=== PATIENT | female | born 1995 | race Caucasian/White ===

== ENCOUNTER 2017-01-25 01:01 | Emergency (ER) | payer BC ==
[~2017-01-25] VITALS: Ht 170.2 cm; Wt 64.0 kg
[~2017-01-25 01:01] MED LIST: ATARAX,VISTARIL25 MG PO; AUGMENTIN875 MG PO; MOTRIN600 MG PO
[2017-01-25 01:26] LABS: EOSINOPHIL (%) 3.5 % (0-5); EOSINOPHIL COUNT 0.4 K/uL (0-0.3); HEMATOCRIT 39.4 % (36.0-46.0); IMMATURE GRANULOCYTE (%) 0.3 % (0.0-0.7); INSTRUMENT ABS NEUTROPHIL CT 4.8 K/uL; LYMPHOCYTE COUNT 4.4 K/uL (1.0-2.8); MCH 30.6 PG (29.0-34.0); MCHC 33.5 G/DL (30.0-36.0); MCV 91.2 FL (83-99); MONOCYTE (%) 4.8 % (3-12); MONOCYTE COUNT 0.5 K/uL (0-0.8); NEUTROPHIL (%) 47.1 % (45-76); NEUTROPHIL COUNT 4.8 K/uL (1.8-6.4); PLATELET COUNT 278 K/uL (156-360); RBC DIS.WIDTH-CV 12.6 % (11.8-14.6); RED BLOOD COUNT 4.32 M/uL (3.80-5.20); WHITE BLOOD COUNT 10.1 K/uL (4.1-10.2)
[2017-01-25 01:37] LABS: CHLORIDE 109 mEq/L (99-109); POTASSIUM 3.8 mEq/L (3.7-5.4); SODIUM 144 mEq/L (136-147)
[2017-01-25 01:39] LABS: GLUCOSE 104 mg/dL (70-99)
[2017-01-25 01:40] LABS: ANION GAP 8 MEQ/L (2-14)
[2017-01-25 01:41] LABS: TOTAL BILIRUBIN 0.1 mg/dL (0.0-1.0)
[2017-01-25 01:42] LABS: SERUM ETHYL ALCOHOL 223 mg/dL
[2017-01-25 01:43] LABS: ALKALINE PHOSPHATASE 65 IU/L (3-129); GFR ESTIMATE (CALCULATED) > 59 mL/min/
[2017-01-25 01:45] LABS: UREA NITROGEN (BUN) 9 mg/dL (9-23)
[2017-01-25 01:46] LABS: SALICYLATE < 5.0 MG/DL (15-30)
[2017-01-25 01:53] LABS: QUANTITATIVE HCG < 4.0 MIU/ML
[2017-01-25 02:03] LABS: ADD MIUA? NO; BILIRUBIN NEGATIVE; BLOOD NEGATIVE; COLOR COLORLESS ((YELLOW)); GLUCOSE (STRIP) NEGATIVE; KETONES NEGATIVE; LEUKOCYTES NEGATIVE; NITRITE NEGATIVE; PROTEIN (STRIP) NEGATIVE; SPECIFIC GRAVITY 1.004 (1.000-1.030); UCUL ADDED? NO; UROBILINOGEN 0.2 MG/DL (0.2-1.0)
[2017-01-25 02:12] LABS: ADD MEDTOX COMMENT Y; AMPHETAMINE NEGATIVE (500 ng/mL); BARBITURATES NEGATIVE (200 ng/mL); BENZODIAZEPINES NEGATIVE (150 ng/mL); COCAINE NEGATIVE (150 ng/mL); INTERNAL CONTROLS VALID? YES; METHADONE NEGATIVE (200 ng/mL); METHAMPHETAMINE NEGATIVE (500 ng/mL); OPIATES (MORPHINE) NEGATIVE (100 ng/mL); OXYCODONE NEGATIVE (100 ng/mL); PHENCYCLIDINE NEGATIVE (25 ng/mL); PROPOXYPHENE NEGATIVE (300 ng/mL); THC CANNABINOIDS PRESUMPTIVE POSITIVE (50 ng/mL); TRICYCLIC ANTIDEPRESSANTS NEGATIVE (300 ng/mL)
[2017-01-25 08:04] VITALS: BP 132/80
== END 2017-01-25 08:15 | disposition home or self-care (01) ==
LOC: EME 01:01
PROVIDERS: Emergency Medicine
DX: F10.129 Alcohol abuse with intoxication, unspecified (principal); Y90.7 Blood alcohol level of 200-239 mg/100 ml; F32.9 Major depressive disorder, single episode, unspecified; F17.200 Nicotine dependence, unspecified, uncomplicated; Z91.5 Personal history of self-harm
CPT/HCPCS: 80053; 81003; 84702; 84999; 85025; 90837; 99281; 99285; G0480; J1630; J2060

== ENCOUNTER 2017-02-25 10:18 | Emergency (ER) | payer BC ==
[~2017-02-25] VITALS: Ht 170.2 cm; Wt 66.0 kg
[2017-02-25] MEDS ORDERED: ATARAX,VISTARIL50 MG PO (12:10)
[2017-02-25] MEDS ORDERED: AMOXICILLIN500 M1 PO (12:10)
[2017-02-25 12:37] VITALS: BP 135/72
== END 2017-02-25 12:38 | disposition home or self-care (01) ==
LOC: EME 10:18
DX: J02.0 Streptococcal pharyngitis (principal)
CPT/HCPCS: 87651 90; 99281; 99283; Q0177

== ENCOUNTER 2017-03-07 20:39 | Emergency (ER) | payer BC ==
[~2017-03-07] VITALS: Ht 170.2 cm; Wt 65.8 kg
[~2017-03-07 20:39] MED LIST changes: +AMOXICILLIN500 M1 PO; +ATARAX,VISTARIL50 MG PO
[2017-03-07] MEDS ORDERED: VALTREX1000 MG PO (23:06)
[2017-03-07] MEDS ORDERED: PERCOCET 7.51 TABLET PO (23:06)
[2017-03-07] MEDS ORDERED: INDOCIN50 MG PO (23:06)
[2017-03-07] MEDS ORDERED: LIDOCAINE20 MG/1 M5 MM (23:08)
[2017-03-07 23:44] VITALS: BP 147/95
== END 2017-03-07 23:48 | disposition home or self-care (01) ==
LOC: EME 20:39
DX: A60.00 Herpesviral infection of urogenital system, unspecified (principal); F17.200 Nicotine dependence, unspecified, uncomplicated
CPT/HCPCS: 99281; 99284; J1885

== ENCOUNTER 2017-04-04 00:01 | Emergency (ER) | payer BC ==
[~2017-04-04] VITALS: Ht 170.2 cm; Wt 62.6 kg
[~2017-04-04 00:01] MED LIST changes: +INDOCIN50 MG PO; +LIDOCAINE20 MG/1 M5 MM; +PERCOCET 7.51 TABLET PO; +VALTREX1000 MG PO
[2017-04-04 01:55] LABS: MCH 30.6 PG (29.0-34.0); MCHC 33.5 G/DL (30.0-36.0); MCV 91.3 FL (83-99); MEAN PLAT.VOLUME 9.9 uM^3 (9.5-12.4); PLATELET COUNT 244 K/uL (156-360); RBC DIS.WIDTH-CV 13.5 % (11.8-14.6); RBC DIS.WIDTH-SD 45.6 % (39-53); RED BLOOD COUNT 4.38 M/uL (3.80-5.20); WHITE BLOOD COUNT 9.2 K/uL (4.1-10.2)
[2017-04-04 02:13] LABS: CHLORIDE 106 mEq/L (99-109); POTASSIUM 3.9 mEq/L (3.7-5.4); SODIUM 144 mEq/L (136-147)
[2017-04-04 02:14] LABS: GLUCOSE 100 mg/dL (70-99)
[2017-04-04 02:16] LABS: ANION GAP 13 MEQ/L (2-14)
[2017-04-04 02:17] LABS: QUANTITATIVE HCG < 4.0 MIU/ML
[2017-04-04 02:18] LABS: GFR ESTIMATE (CALCULATED) > 59 mL/min/; SERUM ETHYL ALCOHOL 163 mg/dL
[2017-04-04 02:19] LABS: UREA NITROGEN (BUN) 5 mg/dL (9-23)
[2017-04-04 02:50] LABS: AMPHETAMINE NEGATIVE (500 ng/mL); BARBITURATES NEGATIVE (200 ng/mL); BENZODIAZEPINES NEGATIVE (150 ng/mL); COCAINE NEGATIVE (150 ng/mL); INTERNAL CONTROLS VALID? YES; METHADONE NEGATIVE (200 ng/mL); METHAMPHETAMINE NEGATIVE (500 ng/mL); OPIATES (MORPHINE) NEGATIVE (100 ng/mL); OXYCODONE NEGATIVE (100 ng/mL); PHENCYCLIDINE NEGATIVE (25 ng/mL); PROPOXYPHENE NEGATIVE (300 ng/mL); THC CANNABINOIDS PRESUMPTIVE POSITIVE (50 ng/mL); TRICYCLIC ANTIDEPRESSANTS NEGATIVE (300 ng/mL)
[2017-04-04 02:51] LABS: ADD MEDTOX COMMENT Y
[2017-04-04 09:32] VITALS: BP 127/68
== END 2017-04-04 09:33 ==
LOC: EME 00:01
PROVIDERS: Emergency Medicine
DX: F10.129 Alcohol abuse with intoxication, unspecified (principal); F32.9 Major depressive disorder, single episode, unspecified; R45.851 Suicidal ideations; F31.9 Bipolar disorder, unspecified; F17.200 Nicotine dependence, unspecified, uncomplicated; Z91.5 Personal history of self-harm
CPT/HCPCS: 80048; 84702; 84999; 85027; 90837; 99281; 99285; G0480; J1630; J2060

== ENCOUNTER 2017-05-25 23:50 | Emergency (ER) | payer BC ==
[~2017-05-25] VITALS: Ht 170.2 cm; Wt 72.3 kg
[2017-05-26 00:24] LABS: ADD MIUA? YES; BILIRUBIN NEGATIVE; BLOOD SMALL; COLOR YELLOW ((YELLOW)); GLUCOSE (STRIP) NEGATIVE; KETONES NEGATIVE; LEUKOCYTES MODERATE; NITRITE NEGATIVE; PROTEIN (STRIP) NEGATIVE; SPECIFIC GRAVITY 1.013 (1.000-1.030); UROBILINOGEN 0.2 MG/DL (0.2-1.0)
[2017-05-26 00:29] LABS: EOSINOPHIL (%) 6.7 % (0-5); EOSINOPHIL COUNT 0.6 K/uL (0-0.3); HEMATOCRIT 37.9 % (36.0-46.0); IMMATURE GRANULOCYTE (%) 0.2 % (0.0-0.7); INSTRUMENT ABS NEUTROPHIL CT 3.8 K/uL; LYMPHOCYTE COUNT 3.5 K/uL (1.0-2.8); MCH 30.7 PG (29.0-34.0); MCHC 33.8 G/DL (30.0-36.0); MCV 90.9 FL (83-99); MEAN PLAT.VOLUME 9.4 uM^3 (9.5-12.4); MONOCYTE COUNT 0.4 K/uL (0-0.8); NEUTROPHIL (%) 45.4 % (45-76); NEUTROPHIL COUNT 3.8 K/uL (1.8-6.4); PLATELET COUNT 230 K/uL (156-360); RBC DIS.WIDTH-CV 13.4 % (11.8-14.6); RBC DIS.WIDTH-SD 44.9 % (39-53); RED BLOOD COUNT 4.17 M/uL (3.80-5.20); WHITE BLOOD COUNT 8.4 K/uL (4.1-10.2)
[2017-05-26 00:30] LABS: BACTERIA RARE /HPF; EPITHELIAL CELLS 1+ /HPF; MUCUS TRACE /LPF; RED BLOOD CELLS 0-5 /HPF (0-5); UCUL ADDED? YES; WHITE BLOOD CELLS 30-40 /HPF (0-5)
[2017-05-26 00:51] LABS: CHLORIDE 104 mEq/L (99-109); POTASSIUM 3.8 mEq/L (3.7-5.4); SODIUM 140 mEq/L (136-147)
[2017-05-26 00:54] LABS: GLUCOSE 93 mg/dL (70-99)
[2017-05-26 00:55] LABS: ANION GAP 11 MEQ/L (2-14)
[2017-05-26 00:56] LABS: TOTAL BILIRUBIN 0.2 mg/dL (0.0-1.0)
[2017-05-26 00:57] LABS: ALKALINE PHOSPHATASE 98 IU/L (3-129); SERUM ETHYL ALCOHOL 82 mg/dL
[2017-05-26 00:58] LABS: GFR ESTIMATE (CALCULATED) > 59 mL/min/
[2017-05-26 00:59] LABS: UREA NITROGEN (BUN) 17 mg/dL (9-23)
[2017-05-26 01:09] LABS: AMPHETAMINE NEGATIVE (500 ng/mL); COCAINE PRESUMPTIVE POSITIVE (150 ng/mL); METHAMPHETAMINE NEGATIVE (500 ng/mL); OPIATES (MORPHINE) PRESUMPTIVE POSITIVE (100 ng/mL); PHENCYCLIDINE NEGATIVE (25 ng/mL); THC CANNABINOIDS PRESUMPTIVE POSITIVE (50 ng/mL)
[2017-05-26 01:10] LABS: QUANTITATIVE HCG < 4.0 MIU/ML
[2017-05-26 01:14] LABS: ADD MEDTOX COMMENT Y; BARBITURATES NEGATIVE (200 ng/mL); BENZODIAZEPINES PRESUMPTIVE POSITIVE (150 ng/mL); INTERNAL CONTROLS VALID? YES; METHADONE NEGATIVE (200 ng/mL); OXYCODONE NEGATIVE (100 ng/mL); PROPOXYPHENE NEGATIVE (300 ng/mL); TRICYCLIC ANTIDEPRESSANTS NEGATIVE (300 ng/mL)
[2017-05-26 01:41] VITALS: BP 124/88
[2017-05-26 02:02] LABS: BENZODIAZEPINES, URINE SCREEN POSITIVE (200 ng/mL)
== END 2017-05-26 01:43 | disposition home or self-care (01) ==
LOC: EME → EDBD 23:50 → EME 05-26 01:43
PROVIDERS: Emergency Medicine
DX: F32.9 Major depressive disorder, single episode, unspecified (principal); F19.10 Other psychoactive substance abuse, uncomplicated; F12.20 Cannabis dependence, uncomplicated; Z04.6 Encounter for general psychiatric examination, requested by authority; Z91.5 Personal history of self-harm; F17.200 Nicotine dependence, unspecified, uncomplicated
CPT/HCPCS: 80053; 81003; 84702; 84999; 85025; 87077; 87086; 87186; 90837; 99281; 99285; G0480

== ENCOUNTER 2017-12-10 23:42 | Emergency (ER) | payer BC ==
[~2017-12-10] VITALS: Ht 170.2 cm; Wt 81.6 kg
[2017-12-10 23:43] VITALS: BP 127/83
[2017-12-11 00:11] LABS: HEMATOCRIT 34.5 % (36.0-46.0); HEMOGLOBIN 11.8 G/DL (11.9-15.5); MCH 31.2 PG (29.0-34.0); MCHC 34.2 G/DL (30.0-36.0); MCV 91.3 FL (83-99); PLATELET COUNT 258 K/uL (156-360); RBC DIS.WIDTH-CV 12.8 % (11.8-14.6); RBC DIS.WIDTH-SD 42.5 % (39-53); RED BLOOD COUNT 3.78 M/uL (3.80-5.20); WHITE BLOOD COUNT 8.7 K/uL (4.1-10.2)
[2017-12-11 00:19] LABS: CHLORIDE 108 mEq/L (99-109); POTASSIUM 3.9 mEq/L (3.7-5.4); SODIUM 141 mEq/L (136-147)
[2017-12-11 00:21] LABS: GLUCOSE 96 mg/dL (70-99)
[2017-12-11 00:24] LABS: SERUM ETHYL ALCOHOL 122 mg/dL
[2017-12-11 00:25] LABS: CREATININE 0.8 mg/dL (0.6-1.3); GFR ESTIMATE (CALCULATED) > 59 mL/min/
[2017-12-11 00:27] LABS: UREA NITROGEN (BUN) 5 mg/dL (9-23)
[2017-12-11 00:28] LABS: ACETAMINOPHEN (TYLENOL) < 10 mcg/mL (10-30); SALICYLATE < 5.0 MG/DL (15-30)
[2017-12-11 01:15] LABS: AMPHETAMINE NEGATIVE (500 ng/mL); BARBITURATES NEGATIVE (200 ng/mL); BENZODIAZEPINES PRESUMPTIVE POSITIVE (150 ng/mL); BUPRENORPHINE NEGATIVE (10 ng/mL); COCAINE PRESUMPTIVE POSITIVE (150 ng/mL); METHADONE NEGATIVE (200 ng/mL); METHAMPHETAMINE NEGATIVE (500 ng/mL); OPIATES (MORPHINE) NEGATIVE (100 ng/mL); OXYCODONE NEGATIVE (100 ng/mL); PHENCYCLIDINE NEGATIVE (25 ng/mL); PROPOXYPHENE NEGATIVE (300 ng/mL); THC CANNABINOIDS PRESUMPTIVE POSITIVE (50 ng/mL); TRICYCLIC ANTIDEPRESSANTS NEGATIVE (300 ng/mL)
[2017-12-11 02:55] LABS: BENZODIAZEPINES, URINE SCREEN POSITIVE (200 ng/mL)
== END 2017-12-11 03:47 | disposition home or self-care (01) ==
LOC: EME 23:42
PROVIDERS: Emergency Medicine
DX: F32.9 Major depressive disorder, single episode, unspecified (principal); F12.20 Cannabis dependence, uncomplicated; F41.9 Anxiety disorder, unspecified; Z88.6 Allergy status to analgesic agent; F17.200 Nicotine dependence, unspecified, uncomplicated
CPT/HCPCS: 80048; 84999; 85027; 90839; 94640; 99281; 99285; G0480

== ENCOUNTER 2017-12-27 16:37 | Emergency (ER) | payer BC ==
[~2017-12-27] VITALS: Ht 170.2 cm; Wt 77.7 kg
[2017-12-27 17:29] LABS: APPEARANCE SL.HAZY ((CLEAR)); BILIRUBIN NEGATIVE; BLOOD NEGATIVE; COLOR YELLOW ((YELLOW)); GLUCOSE (STRIP) NEGATIVE; KETONES NEGATIVE; LEUKOCYTES SMALL; NITRITE NEGATIVE; PROTEIN (STRIP) NEGATIVE; SPECIFIC GRAVITY 1.024 (1.000-1.030); UROBILINOGEN 0.2 MG/DL (0.2-1.0)
[2017-12-27 18:02] LABS: BACTERIA NONE SEEN /HPF; EPITHELIAL CELLS 1+ /HPF; MUCUS TRACE /LPF; RED BLOOD CELLS 0-5 /HPF (0-5); UCUL ADDED? YES
[2017-12-27 18:13] VITALS: BP 138/105
== END 2017-12-27 18:22 | disposition home or self-care (01) ==
LOC: EME 16:37
PROVIDERS: Physician Assistant Medical
DX: Z20.2 Contact with and (suspected) exposure to infections with a predominantly sexual mode of transmission (principal); J02.9 Acute pharyngitis, unspecified; F41.0 Panic disorder [episodic paroxysmal anxiety]; F17.200 Nicotine dependence, unspecified, uncomplicated; Z88.6 Allergy status to analgesic agent
CPT/HCPCS: 81003; 81025; 87086; 87651 90; 99281; 99284; J0696

== ENCOUNTER 2018-01-18 07:07 | Emergency (ER) | payer BC ==
[~2018-01-18] VITALS: Ht 170.2 cm; Wt 80.9 kg
[2018-01-18 08:10] LABS: APPEARANCE TURBID ((CLEAR)); BILIRUBIN NEGATIVE; BLOOD NEGATIVE; COLOR AMBER ((YELLOW)); GLUCOSE (STRIP) NEGATIVE; KETONES 5; LEUKOCYTES TRACE; NITRITE NEGATIVE; PROTEIN (STRIP) 100; SPECIFIC GRAVITY 1.025 (1.000-1.030); UROBILINOGEN 0.2 MG/DL (0.2-1.0)
[2018-01-18 08:32] VITALS: BP 129/94
[2018-01-18 09:07] LABS: RED BLOOD CELLS NONE SEEN /HPF (0-5); WHITE BLOOD CELLS RARE /HPF (0-5)
[2018-01-18 09:08] LABS: AMORPHOUS URATES CRYSTALS 2+; BACTERIA 1+ /HPF; EPITHELIAL CELLS RARE /HPF; MUCUS NONE SEEN /LPF
== END 2018-01-18 08:34 | disposition home or self-care (01) ==
LOC: EME 07:07
PROVIDERS: Nurse Practitioner Family
DX: F41.9 Anxiety disorder, unspecified (principal); F43.9 Reaction to severe stress, unspecified; F14.20 Cocaine dependence, uncomplicated; Z04.6 Encounter for general psychiatric examination, requested by authority; F31.9 Bipolar disorder, unspecified; F32.9 Major depressive disorder, single episode, unspecified; F17.200 Nicotine dependence, unspecified, uncomplicated; Z91.5 Personal history of self-harm; Z88.6 Allergy status to analgesic agent; Z88.8 Allergy status to other drugs, medicaments and biological substances
CPT/HCPCS: 81003; 81025; 90837; 99281; 99285

== ENCOUNTER 2018-03-08 21:02 | Emergency (ER) | payer BC ==
[~2018-03-08] VITALS: Ht 170.2 cm; Wt 76.3 kg
[2018-03-08 21:51] LABS: CHLORIDE 98 mEq/L (99-109); POTASSIUM 3.3 mEq/L (3.7-5.4); SODIUM 139 mEq/L (136-147)
[2018-03-08 21:52] LABS: GLUCOSE 119 mg/dL (70-99)
[2018-03-08 21:55] LABS: SERUM ETHYL ALCOHOL < 10 mg/dL
[2018-03-08 21:56] LABS: CREATININE 1.1 mg/dL (0.6-1.3); GFR ESTIMATE (CALCULATED) > 59 mL/min/
[2018-03-08 21:57] LABS: UREA NITROGEN (BUN) 6 mg/dL (9-23)
[2018-03-08 22:34] LABS: COCAINE PRESUMPTIVE POSITIVE (150 ng/mL); PHENCYCLIDINE NEGATIVE (25 ng/mL); THC CANNABINOIDS PRESUMPTIVE POSITIVE (50 ng/mL)
[2018-03-08 22:35] LABS: AMPHETAMINE NEGATIVE (500 ng/mL); BARBITURATES NEGATIVE (200 ng/mL); BENZODIAZEPINES PRESUMPTIVE POSITIVE (150 ng/mL); BUPRENORPHINE NEGATIVE (10 ng/mL); METHADONE NEGATIVE (200 ng/mL); METHAMPHETAMINE PRESUMPTIVE POSITIVE (500 ng/mL); OPIATES (MORPHINE) NEGATIVE (100 ng/mL); OXYCODONE NEGATIVE (100 ng/mL); PROPOXYPHENE NEGATIVE (300 ng/mL); TRICYCLIC ANTIDEPRESSANTS NEGATIVE (300 ng/mL)
[2018-03-08 23:06] LABS: BENZODIAZEPINES, URINE SCREEN Negative (200 ng/mL)
[2018-03-09 03:07] VITALS: BP 133/89
== END 2018-03-09 03:11 | disposition home or self-care (01) ==
LOC: EME 21:02
PROVIDERS: Physician Assistant
DX: F19.10 Other psychoactive substance abuse, uncomplicated (principal); T43.611A Poisoning by caffeine, accidental (unintentional), initial encounter; R94.31 Abnormal electrocardiogram [ECG] [EKG]; F31.9 Bipolar disorder, unspecified; F32.9 Major depressive disorder, single episode, unspecified; F41.9 Anxiety disorder, unspecified; Z91.5 Personal history of self-harm; F17.200 Nicotine dependence, unspecified, uncomplicated; Z88.6 Allergy status to analgesic agent; Z88.8 Allergy status to other drugs, medicaments and biological substances
CPT/HCPCS: 71045; 80048; 84999; 93005; 99281; 99285; G0480; J2060; J7030; Q0177

== ENCOUNTER 2018-03-13 18:07 | Emergency (ER) | payer BC ==
[~2018-03-13] VITALS: Ht 170.2 cm; Wt 77.8 kg
[2018-03-13 19:58] LABS: APPEARANCE CLEAR ((CLEAR)); BILIRUBIN NEGATIVE; BLOOD NEGATIVE; COLOR STRAW ((YELLOW)); GLUCOSE (STRIP) NEGATIVE; KETONES NEGATIVE; LEUKOCYTES TRACE; NITRITE NEGATIVE; PROTEIN (STRIP) NEGATIVE; SPECIFIC GRAVITY 1.004 (1.000-1.030); UROBILINOGEN 0.2 MG/DL (0.2-1.0)
[2018-03-13 20:00] LABS: HEMATOCRIT 40.2 % (36.0-46.0); HEMOGLOBIN 13.8 G/DL (11.9-15.5); MCH 31.5 PG (29.0-34.0); MCHC 34.3 G/DL (30.0-36.0); MCV 91.8 FL (83-99); PLATELET COUNT 277 K/uL (156-360); RBC DIS.WIDTH-CV 12.1 % (11.8-14.6); RBC DIS.WIDTH-SD 41.4 % (39-53); RED BLOOD COUNT 4.38 M/uL (3.80-5.20)
[2018-03-13 20:02] LABS: BACTERIA RARE /HPF; EPITHELIAL CELLS RARE /HPF; MUCUS NONE SEEN /LPF; RED BLOOD CELLS 0-5 /HPF (0-5); WHITE BLOOD CELLS 0-5 /HPF (0-5)
[2018-03-13 20:07] LABS: AMPHETAMINE NEGATIVE (500 ng/mL); BARBITURATES NEGATIVE (200 ng/mL); BENZODIAZEPINES PRESUMPTIVE POSITIVE (150 ng/mL); BUPRENORPHINE NEGATIVE (10 ng/mL); COCAINE NEGATIVE (150 ng/mL); METHADONE NEGATIVE (200 ng/mL); METHAMPHETAMINE NEGATIVE (500 ng/mL); OPIATES (MORPHINE) NEGATIVE (100 ng/mL); OXYCODONE NEGATIVE (100 ng/mL); PHENCYCLIDINE NEGATIVE (25 ng/mL); PROPOXYPHENE NEGATIVE (300 ng/mL); THC CANNABINOIDS NEGATIVE (50 ng/mL); TRICYCLIC ANTIDEPRESSANTS NEGATIVE (300 ng/mL)
[2018-03-13 20:08] LABS: D-DIMER ELISA < 150.00 ng/mLDDU (<230)
[2018-03-13 20:17] LABS: CHLORIDE 104 mEq/L (99-109); POTASSIUM 3.7 mEq/L (3.7-5.4); SODIUM 138 mEq/L (136-147)
[2018-03-13 20:19] LABS: GLUCOSE 89 mg/dL (70-99)
[2018-03-13 20:23] LABS: GFR ESTIMATE (CALCULATED) > 59 mL/min/
[2018-03-13 20:24] LABS: UREA NITROGEN (BUN) 8 mg/dL (9-23)
[2018-03-13 20:31] LABS: QUANTITATIVE HCG < 4.0 MIU/ML; TROP-I INTERPRETATION NEGATIVE; TROPONIN-I < 0.01 ng/mL (0.0-0.30)
[2018-03-13 20:40] LABS: BENZODIAZEPINES, URINE SCREEN Negative (200 ng/mL)
[2018-03-13 21:15] LABS: THYROTROPIN (TSH) 0.46 MIU/L (0.4-5.5)
[2018-03-13 21:43] LABS: SERUM ETHYL ALCOHOL < 10 mg/dL
[2018-03-13] MEDS ORDERED: VISTARIL50 MG PO (22:04)
[2018-03-13 22:31] VITALS: BP 122/78
== END 2018-03-13 22:33 | disposition home or self-care (01) ==
LOC: EME 18:07
PROVIDERS: Physician Assistant
DX: F41.9 Anxiety disorder, unspecified (principal); Z91.14 Patient's other noncompliance with medication regimen; F32.9 Major depressive disorder, single episode, unspecified; F31.9 Bipolar disorder, unspecified; Z91.5 Personal history of self-harm; F17.200 Nicotine dependence, unspecified, uncomplicated; Z88.6 Allergy status to analgesic agent; Z88.8 Allergy status to other drugs, medicaments and biological substances
CPT/HCPCS: 71046; 80048; 81003; 83735; 84443; 84484; 84702; 84999; 85027; 85379; 90839; 93005; 99281; 99285; G0480

== ENCOUNTER 2018-03-30 19:27 | Emergency (ER) | payer BC ==
[~2018-03-30] VITALS: Ht 170.2 cm; Wt 77.0 kg
[~2018-03-30 19:27] MED LIST changes: +VISTARIL50 MG PO
[2018-03-30 20:38] LABS: BASOPHIL (%) 0.4 % (0-1); BASOPHIL COUNT 0.1 K/uL (0-0.1); EOSINOPHIL (%) 0.9 % (0-5); EOSINOPHIL COUNT 0.1 K/uL (0-0.3); HEMATOCRIT 37.7 % (36.0-46.0); HEMOGLOBIN 13.2 G/DL (11.9-15.5); LYMPHOCYTE (%) 29.8 % (15-42); LYMPHOCYTE COUNT 3.7 K/uL (1.0-2.8); MCH 31.4 PG (29.0-34.0); MCV 89.5 FL (83-99); MONOCYTE (%) 8.3 % (3-12); NEUTROPHIL (%) 59.6 % (45-76); NEUTROPHIL COUNT 7.4 K/uL (1.8-6.4); PLATELET COUNT 270 K/uL (156-360); RBC DIS.WIDTH-CV 12.5 % (11.8-14.6); RBC DIS.WIDTH-SD 40.9 % (39-53); RED BLOOD COUNT 4.21 M/uL (3.80-5.20); WHITE BLOOD COUNT 12.5 K/uL (4.1-10.2)
[2018-03-30 20:47] LABS: CHLORIDE 106 mEq/L (99-109); POTASSIUM 3.7 mEq/L (3.7-5.4); SODIUM 140 mEq/L (136-147)
[2018-03-30 20:49] LABS: GLUCOSE 108 mg/dL (70-99); TOTAL PROTEIN 7.1 g/dL (6.4-8.3)
[2018-03-30 20:51] LABS: TOTAL BILIRUBIN 0.4 mg/dL (0.0-1.0)
[2018-03-30 20:52] LABS: ALKALINE PHOSPHATASE 60 IU/L (3-129)
[2018-03-30 20:53] LABS: CREATININE 0.9 mg/dL (0.6-1.3); GFR ESTIMATE (CALCULATED) > 59 mL/min/
[2018-03-30 20:54] LABS: AST (GOT) 23 IU/L (2-34); UREA NITROGEN (BUN) 6 mg/dL (9-23)
[2018-03-30 20:56] LABS: ALT (GPT) 16 IU/L (3-49)
[2018-03-30 21:02] LABS: QUANTITATIVE HCG < 4.0 MIU/ML
[2018-03-30 21:42] LABS: SERUM ETHYL ALCOHOL < 10 mg/dL
[2018-03-30 21:54] LABS: TROP-I INTERPRETATION NEGATIVE; TROPONIN-I 0.01 ng/mL (0.0-0.30)
[2018-03-30 22:23] LABS: AMPHETAMINE NEGATIVE (500 ng/mL); BARBITURATES NEGATIVE (200 ng/mL); BENZODIAZEPINES PRESUMPTIVE POSITIVE (150 ng/mL); BUPRENORPHINE NEGATIVE (10 ng/mL); COCAINE PRESUMPTIVE POSITIVE (150 ng/mL); METHADONE NEGATIVE (200 ng/mL); METHAMPHETAMINE NEGATIVE (500 ng/mL); OPIATES (MORPHINE) NEGATIVE (100 ng/mL); OXYCODONE NEGATIVE (100 ng/mL); PHENCYCLIDINE NEGATIVE (25 ng/mL); PROPOXYPHENE NEGATIVE (300 ng/mL); THC CANNABINOIDS PRESUMPTIVE POSITIVE (50 ng/mL); TRICYCLIC ANTIDEPRESSANTS NEGATIVE (300 ng/mL)
[2018-03-30 23:12] LABS: BENZODIAZEPINES, URINE SCREEN POSITIVE (200 ng/mL)
[2018-03-30 23:37] VITALS: BP 141/87
== END 2018-03-30 23:38 | disposition home or self-care (01) ==
LOC: EME 19:27
PROVIDERS: Emergency Medicine
DX: F19.10 Other psychoactive substance abuse, uncomplicated (principal); F32.9 Major depressive disorder, single episode, unspecified; F31.9 Bipolar disorder, unspecified; F17.200 Nicotine dependence, unspecified, uncomplicated; Z91.5 Personal history of self-harm; Z88.6 Allergy status to analgesic agent; Z88.8 Allergy status to other drugs, medicaments and biological substances
CPT/HCPCS: 71045; 80053; 84484; 84702; 84999; 85025; 90839; 99281; 99285; G0480

== ENCOUNTER 2018-04-15 17:17 | Emergency (ER) | payer BC ==
[~2018-04-15] VITALS: Ht 170.2 cm; Wt 77.2 kg
[2018-04-15 18:25] LABS: APPEARANCE SL.HAZY ((CLEAR)); BILIRUBIN NEGATIVE; BLOOD NEGATIVE; COLOR YELLOW ((YELLOW)); GLUCOSE (STRIP) NEGATIVE; KETONES NEGATIVE; LEUKOCYTES TRACE; NITRITE NEGATIVE; PROTEIN (STRIP) 100; SPECIFIC GRAVITY 1.017 (1.000-1.030); UROBILINOGEN 0.2 MG/DL (0.2-1.0)
[2018-04-15 18:42] LABS: EPITHELIAL CELLS RARE /HPF; MUCUS NONE SEEN /LPF; RED BLOOD CELLS NONE SEEN /HPF (0-5); WHITE BLOOD CELLS RARE /HPF (0-5)
[2018-04-15 18:43] LABS: BACTERIA RARE /HPF; UCUL ADDED? NO
[2018-04-15 20:01] LABS: HEMATOCRIT 36.5 % (36.0-46.0); HEMOGLOBIN 12.4 G/DL (11.9-15.5); MCH 31.2 PG (29.0-34.0); MCV 91.9 FL (83-99); PLATELET COUNT 281 K/uL (156-360); RBC DIS.WIDTH-CV 12.2 % (11.8-14.6); RBC DIS.WIDTH-SD 41.1 % (39-53); RED BLOOD COUNT 3.97 M/uL (3.80-5.20); WHITE BLOOD COUNT 9.4 K/uL (4.1-10.2)
[2018-04-15 20:05] LABS: CHLORIDE 106 mEq/L (99-109); SODIUM 143 mEq/L (136-147)
[2018-04-15 20:06] LABS: GLUCOSE 94 mg/dL (70-99)
[2018-04-15 20:10] LABS: CREATININE 0.9 mg/dL (0.6-1.3); GFR ESTIMATE (CALCULATED) > 59 mL/min/
[2018-04-15 20:11] LABS: UREA NITROGEN (BUN) 11 mg/dL (9-23)
[2018-04-15 20:20] LABS: QUANTITATIVE HCG < 4.0 MIU/ML
[2018-04-15 20:28] LABS: SOURCE SWAB
[2018-04-15] MEDS ORDERED: PYRIDIUM200 MG PO (21:24)
[2018-04-15 21:44] VITALS: BP 121/79
[2018-04-15 22:08] LABS: CANDIDA DNA PROBE NEGATIVE; GARDNERELLA DNA PROBE POSITIVE; TRICHOMONAS DNA PROBE NEGATIVE
== END 2018-04-15 21:45 | disposition home or self-care (01) ==
LOC: RME 17:17 → EME 17:17 → RME 21:45
PROVIDERS: Physician Assistant
DX: Z20.2 Contact with and (suspected) exposure to infections with a predominantly sexual mode of transmission (principal); R30.0 Dysuria; Z87.440 Personal history of urinary (tract) infections; F31.9 Bipolar disorder, unspecified; F41.9 Anxiety disorder, unspecified; F32.9 Major depressive disorder, single episode, unspecified; F17.200 Nicotine dependence, unspecified, uncomplicated; Z91.5 Personal history of self-harm; Z88.6 Allergy status to analgesic agent; Z88.8 Allergy status to other drugs, medicaments and biological substances
CPT/HCPCS: 80048; 81003; 84702; 85027; 87210; 87480; 87491; 87510; 87591; 87660; 99281; 99284; J0696

== ENCOUNTER 2018-04-21 03:15 | Observation (INO) | payer BC ==
[~2018-04-21] VITALS: Ht 170.2 cm; Wt 77.3 kg
[~2018-04-21 03:15] MED LIST changes: +PYRIDIUM200 MG PO
[2018-04-21 04:05] LABS: HEMOGLOBIN 11.9 G/DL (11.9-15.5); MCH 31.1 PG (29.0-34.0); MCV 88.8 FL (83-99); PLATELET COUNT 286 K/uL (156-360); RBC DIS.WIDTH-CV 12.4 % (11.8-14.6); RBC DIS.WIDTH-SD 40.1 % (39-53); RED BLOOD COUNT 3.83 M/uL (3.80-5.20); WHITE BLOOD COUNT 12.5 K/uL (4.1-10.2)
[2018-04-21 04:16] LABS: CHLORIDE 105 mEq/L (99-109); POTASSIUM 3.5 mEq/L (3.7-5.4); SODIUM 141 mEq/L (136-147)
[2018-04-21 04:18] LABS: GLUCOSE 100 mg/dL (70-99)
[2018-04-21 04:19] LABS: TOTAL PROTEIN 6.7 g/dL (6.4-8.3)
[2018-04-21 04:20] LABS: TOTAL BILIRUBIN 0.4 mg/dL (0.0-1.0)
[2018-04-21 04:22] LABS: ALKALINE PHOSPHATASE 65 IU/L (3-129); GFR ESTIMATE (CALCULATED) > 59 mL/min/
[2018-04-21 04:23] LABS: UREA NITROGEN (BUN) 7 mg/dL (9-23)
[2018-04-21 04:24] LABS: AST (GOT) 19 IU/L (2-34)
[2018-04-21] MEDS ORDERED: METRONIDAZOLE500 MG PO (04:24)
[2018-04-21 04:25] LABS: ALT (GPT) 13 IU/L (3-49)
[2018-04-21] MEDS ORDERED: SEROQUEL50 MG PO (04:25)
[2018-04-21] MEDS ORDERED: SEROQUEL12.5 MG PO (04:25)
[2018-04-21] MEDS ORDERED: HYDROXYZINE HCL25 MG PO (04:27)
[2018-04-21 04:31] LABS: TROP-I INTERPRETATION NEGATIVE; TROPONIN-I < 0.01 ng/mL (0.0-0.30)
[2018-04-21] MEDS ORDERED: ZOFRAN ODT4 MG PO (04:43)
[2018-04-21] MEDS ORDERED: ROBAXIN750 MG PO (04:43)
[2018-04-21] MEDS ORDERED: ATIVAN0.5 MG PO ×2 (04:43→11:05)
[2018-04-21 10:00] VITALS: BP 122/71
[2018-04-21] MEDS ORDERED: VITAMIN B-1100 MG PO (11:05)
[2018-04-21] MEDS ORDERED: TRINESSA1 EACH PO (11:05)
[2018-04-21] MEDS ORDERED: FOLIC ACID1 MG PO (11:05)
[2018-04-21] MEDS ORDERED: PERIACTIN4 MG PO (11:09)
[2018-04-21] MEDS ORDERED: ASPIRIN81 M2 PO (11:10)
[2018-04-21 11:35] LABS: TROP-I INTERPRETATION NEGATIVE; TROPONIN-I < 0.01 ng/mL (0.0-0.30)
[2018-04-21 15:50] LABS: TROP-I INTERPRETATION NEGATIVE; TROPONIN-I < 0.01 ng/mL (0.0-0.30)
[2018-04-21 19:15] VITALS: BP 127/75
[2018-04-22] VITALS: BP 115/65
[2018-04-22 04:10] VITALS: BP 114/66
[2018-04-22 04:37] LABS: HEMATOCRIT 34.2 % (36.0-46.0); HEMOGLOBIN 11.5 G/DL (11.9-15.5); MCH 30.8 PG (29.0-34.0); MCHC 33.6 G/DL (30.0-36.0); MCV 91.7 FL (83-99); PLATELET COUNT 231 K/uL (156-360); RBC DIS.WIDTH-CV 12.3 % (11.8-14.6); RBC DIS.WIDTH-SD 41.2 % (39-53); RED BLOOD COUNT 3.73 M/uL (3.80-5.20); WHITE BLOOD COUNT 6.4 K/uL (4.1-10.2)
[2018-04-22 04:47] LABS: CHLORIDE 110 mEq/L (99-109); POTASSIUM 3.9 mEq/L (3.7-5.4); SODIUM 141 mEq/L (136-147)
[2018-04-22 04:49] LABS: GLUCOSE 98 mg/dL (70-99)
[2018-04-22 04:53] LABS: CREATININE 0.9 mg/dL (0.6-1.3); GFR ESTIMATE (CALCULATED) > 59 mL/min/
[2018-04-22 04:54] LABS: UREA NITROGEN (BUN) 6 mg/dL (9-23)
[2018-04-22 07:40] VITALS: BP 104/64
[2018-04-22] MEDS ORDERED: IBUPROFEN600 MG PO (07:40)
[2018-04-22 12:40] VITALS: BP 110/71
[2018-04-22] MEDS ORDERED: DICLOFENAC SODI50 MG PO (17:23)
== END 2018-04-22 13:32 | disposition home or self-care (01) ==
LOC: EXP 03:15 → EME 03:15 → 4SOUTH 08:29 → EDOF 08:29 → ENRESERV 08:53 → 4SOUTH 09:38 → ENPENDDIS 04-22 08:08 → 4SOUTH 04-22 13:32
PROVIDERS: Hospitalist; Physician Assistant
DX: R07.9 Chest pain, unspecified (principal); J98.2 Interstitial emphysema; E87.6 Hypokalemia; F32.9 Major depressive disorder, single episode, unspecified; F41.9 Anxiety disorder, unspecified; N76.0 Acute vaginitis; B96.89 Other specified bacterial agents as the cause of diseases classified elsewhere; G89.29 Other chronic pain; M54.9 Dorsalgia, unspecified; M41.9 Scoliosis, unspecified; F17.210 Nicotine dependence, cigarettes, uncomplicated; F14.10 Cocaine abuse, uncomplicated; Z88.6 Allergy status to analgesic agent; Z88.8 Allergy status to other drugs, medicaments and biological substances
CPT/HCPCS: 71045; 71046; 71275; 80048; 80053; 84484; 85027; 93005; 99281; 99285; G0378; J1644; J2270; J3010; J3480; J7030

== ENCOUNTER 2018-04-22 14:47 | Emergency (ER) | payer BC ==
[~2018-04-22] VITALS: Ht 170.2 cm; Wt 79.2 kg
[~2018-04-22 14:47] MED LIST changes: +ASPIRIN81 M2 PO; +ATIVAN0.5 MG PO; +FOLIC ACID1 MG PO; +HYDROXYZINE HCL25 MG PO; +IBUPROFEN600 MG PO; +METRONIDAZOLE500 MG PO; +PERIACTIN4 MG PO; +ROBAXIN750 MG PO; +SEROQUEL12.5 MG PO; +SEROQUEL50 MG PO; +TRINESSA1 EACH PO; +VITAMIN B-1100 MG PO; +ZOFRAN ODT4 MG PO
[2018-04-22] MEDS ORDERED: DICLOFENAC SODI50 MG PO (17:23)
[2018-04-22 17:44] VITALS: BP 118/88
== END 2018-04-22 17:45 | disposition home or self-care (01) ==
LOC: EME 14:47
DX: M54.9 Dorsalgia, unspecified (principal); G89.29 Other chronic pain; F19.10 Other psychoactive substance abuse, uncomplicated; M41.9 Scoliosis, unspecified; Z88.6 Allergy status to analgesic agent; Z88.8 Allergy status to other drugs, medicaments and biological substances
CPT/HCPCS: 99281; 99283

== ENCOUNTER 2018-04-28 08:34 | Emergency (ER) | payer BC ==
[~2018-04-28] VITALS: Ht 170.2 cm; Wt 78.0 kg
[~2018-04-28 08:34] MED LIST changes: +DICLOFENAC SODI50 MG PO
[2018-04-28 09:16] LABS: HEMATOCRIT 36.5 % (36.0-46.0); HEMOGLOBIN 12.7 G/DL (11.9-15.5); MCH 31.4 PG (29.0-34.0); MCHC 34.8 G/DL (30.0-36.0); MCV 90.1 FL (83-99); PLATELET COUNT 279 K/uL (156-360); RBC DIS.WIDTH-CV 12.6 % (11.8-14.6); RBC DIS.WIDTH-SD 41.6 % (39-53); RED BLOOD COUNT 4.05 M/uL (3.80-5.20); WHITE BLOOD COUNT 15.2 K/uL (4.1-10.2)
[2018-04-28 09:26] LABS: CHLORIDE 107 mEq/L (99-109); POTASSIUM 3.9 mEq/L (3.7-5.4); SODIUM 140 mEq/L (136-147)
[2018-04-28 09:28] LABS: GLUCOSE 105 mg/dL (70-99)
[2018-04-28 09:32] LABS: CREATININE 0.8 mg/dL (0.6-1.3); GFR ESTIMATE (CALCULATED) > 59 mL/min/
[2018-04-28 09:33] LABS: UREA NITROGEN (BUN) 4 mg/dL (9-23)
[2018-04-28 09:37] LABS: TROP-I INTERPRETATION NEGATIVE; TROPONIN-I < 0.01 ng/mL (0.0-0.30)
[2018-04-28 09:41] LABS: QUANTITATIVE HCG < 4.0 MIU/ML
[2018-04-28 10:33] VITALS: BP 117/67
== END 2018-04-28 11:02 | disposition home or self-care (01) ==
LOC: EME 08:34
PROVIDERS: Nurse Practitioner Family
DX: F14.90 Cocaine use, unspecified, uncomplicated (principal); R07.9 Chest pain, unspecified; F41.9 Anxiety disorder, unspecified; F12.90 Cannabis use, unspecified, uncomplicated; F32.9 Major depressive disorder, single episode, unspecified; Z79.82 Long term (current) use of aspirin; Z88.6 Allergy status to analgesic agent; F17.200 Nicotine dependence, unspecified, uncomplicated
CPT/HCPCS: 71046; 80048; 84484; 84702; 85027; 93005; 99281; 99284; J7030